=== PATIENT | female | born 1985 | race Caucasian/White ===

== ENCOUNTER 2017-05-06 19:13 | Emergency (ER) | payer SELFPAY | END 2017-05-06 22:05 | disposition home or self-care (01) | LOC: D.ER 19:13 | DX: J18.9 Pneumonia, unspecified organism (principal); R09.89 Other specified symptoms and signs involving the circulatory and respiratory systems; F17.200 Nicotine dependence, unspecified, uncomplicated ==

== ENCOUNTER 2018-04-25 19:12 | Emergency (ER) | payer MEDICAID ==
[~2018-04-25] VITALS: Ht 167.6 cm; Wt 77.3 kg
[2018-04-25 19:23] VITALS: Ht 167.6 cm; Wt 77.3 kg
[2018-04-25] MEDS ORDERED: PHENERGAN DM SYR5 ML PO (21:34)
[2018-04-25] MEDS ORDERED: ZPAK PO (21:34)
[2018-04-25 22:10] VITALS: BP 112/68
== END 2018-04-25 22:11 | disposition home or self-care (01) ==
LOC: D.ER 19:12
DX: J06.9 Acute upper respiratory infection, unspecified (principal); J40 Bronchitis, not specified as acute or chronic; R51 Headache; F17.200 Nicotine dependence, unspecified, uncomplicated

== ENCOUNTER 2018-10-09 12:35 | Emergency (ER) | payer MEDICAID ==
[~2018-10-09] VITALS: Ht 167.6 cm; Wt 77.3 kg
[~2018-10-09 12:35] MED LIST: PHENERGAN DM SYR5 ML PO; ZPAK PO
[2018-10-09 12:37] VITALS: Ht 167.6 cm; Wt 77.3 kg
[2018-10-09 13:03] LABS: APPEARANCE CLOUDY (CLEAR); BACTERIA MANY /hpf (NONE SEEN); BILIRUBIN NEGATIVE (NEGATIVE); COLOR YELLOW (YELLOW); EPITHELIAL CELLS 0-5 /hpf (0-5); GLUCOSE NEGATIVE (NEGATIVE); KETONE NEGATIVE (NEGATIVE); NITRITE NEGATIVE (NEGATIVE); PROTEIN 1+ mg/dL (NEGATIVE); SPECIFIC GRAVITY 1.015 (1.005-1.020); UROBILINOGEN NORMAL (NORMAL); WHITE CELLS - URINE >50 /hpf (0-5)
[2018-10-09] MEDS ORDERED: CIPRO500 MG PO (13:21)
[2018-10-09] MEDS ORDERED: LEXAPRO20 MG PO (13:21)
--- NOTE | 2018-10-09 14:25 | NUR ---
PATIENT VEHEMENTLY DENIES ANY DESIRE TO HARM SELF AT THIS TIME. STATES THAT HER CHILD NEEDS HER. PT ADMITS TO HAVING SUICIDAL THOUGHTS IN THE PAST, BUT DENIES SI AT THIS TIME. PATIENT STATES THAT HER CURRENT LIVING SITUATION "JUST GOT ME DOWN THIS MORNING BUT I FEEL FINE NOW." DR GARDNER NOTIFIED AND REVIEWED PT'S BEHAVIOR AND ASSESSMENT RESULTS. PT IS A LOW RISK PER DR GARDNER. DR GARDNER STATED TO GIVE RESOURCES TO PT AT TIME OF DISCHARGE. NO FURTHER ORDERS AT THIS TIME. RESOURCES REVIEWED WITH PT AND SHE VERBALIZED UNDERSTANDING.
[2018-10-09 15:04] VITALS: BP 122/64
== END 2018-10-09 15:04 | disposition home or self-care (01) ==
LOC: D.ER 12:35
PROVIDERS: Emergency Medicine
DX: N39.0 Urinary tract infection, site not specified (principal); F32.9 Major depressive disorder, single episode, unspecified

== ENCOUNTER 2018-11-15 23:30 | Emergency (ER) | payer MEDICAID ==
[~2018-11-15] VITALS: Ht 167.6 cm; Wt 80.4 kg
[~2018-11-15 23:30] MED LIST changes: +CIPRO500 MG PO; +LEXAPRO20 MG PO
[2018-11-16 00:19] VITALS: Ht 167.6 cm; Wt 80.4 kg
[2018-11-16] MEDS ORDERED: VISTARIL50 MG PO (02:13)
[2018-11-16 02:21] VITALS: BP 138/65
== END 2018-11-16 02:21 | disposition home or self-care (01) ==
LOC: D.ER 23:30
DX: B88.0 Other acariasis (principal)

== ENCOUNTER 2018-12-12 19:23 | Emergency (ER) | payer MEDICAID ==
[~2018-12-12] VITALS: Ht 167.6 cm; Wt 68.2 kg
[~2018-12-12 19:23] MED LIST changes: +VISTARIL50 MG PO
[2018-12-12 20:03] VITALS: BP 126/73; Ht 167.6 cm; Wt 68.2 kg
== END 2018-12-12 20:52 | disposition left against medical advice (07) ==
LOC: D.ER 19:23
DX: K08.89 Other specified disorders of teeth and supporting structures (principal)